=== PATIENT | female | born 1990 ===

== ENCOUNTER 2021-03-10 04:28 | Day surgery (SDC) | payer OTHER ==
[2021-03-09 09:58] VITALS: BMI 26.6
[2021-03-10] MEDS ORDERED: BUPIVACAINE HCL/PF 0.5% (5MG/ML) 10 ML VIAL ONE (13:23)
[2021-03-10] MEDS ORDERED: PROPOFOL 20 ML ONE (14:05)
[2021-03-10] MEDS ORDERED: SUCCINYLCHOLINE CHLORIDE 200 MG/10 ML SYRINGE ONE (14:05)
[2021-03-10] MEDS ORDERED: MIDAZOLAM HCL 2 MG/2 ML SINGLE DOSE VIAL ONE (14:05)
[2021-03-10] MEDS ORDERED: ROCURONIUM BROMIDE 50 MG/5 ML SYRINGE ONE (14:19)
[2021-03-10] MEDS ORDERED: BUPIVACAINE HCL/PF 0.5% (5MG/ML) 10 ML VIAL NR ONE (14:32)
[2021-03-10] MEDS ORDERED: NEOSTIGMINE METHYLSULFATE 0.5 MG/1 ML - 10 ML MDV ONE (14:43)
[2021-03-10] MEDS ORDERED: ONDANSETRON 4 MG/2 ML VIAL IVPUSH PRN (14:45)
[2021-03-10] MEDS ORDERED: LACTATED RINGERS SOLUTION 1,000 ML IV SCH ×2 (14:45→15:15)
[2021-03-10] MEDS ORDERED: PROMETHAZINE HCL 25 MG/1 ML VIAL IVPUSH PRN ×2 (14:45→15:05)
[2021-03-10] MEDS ORDERED: oxyCODONE HCL 5 MG TABLET PO PRN (14:45)
[2021-03-10 17:55] VITALS: BP 119/78; PULSE 80; TEMP 98
== END 2021-03-10 17:15 | disposition home or self-care (01) ==
LOC: JASU-SURG 04:28
PROVIDERS: ATTEND Student in an Organized Health Care Education/Training Program
PROC: 0UT74ZZ Resection of Bilateral Fallopian Tubes, Percutaneous Endoscopic Approach (ICD-10-PCS; principal; 2021-03-10 13:00)
DX: Z30.2 Encounter for sterilization (principal)
CPT/HCPCS: 81025; 94760